=== PATIENT | male | born 1945 | race Hispanic/Latino ===

== ENCOUNTER 2019-08-07 20:19 | Emergency (ER) | payer OTHER, SELFPAY ==
[2019-08-07 20:39] LABS: #Eosinphils 0.1 thou/uL (0.0-0.7); #Lymphocytes 1.1 thou/uL (1.20-3.40); #Monocytes 0.2 thou/uL (0.11-0.59); #Neutrophils 3.7 thou/uL (1.40-6.50); %Basophils 0.8 % (0.0-1.0); %Eosinophils 1.2 % (0.0-10.0); %Lymphocytes 21.7 % (21.0-51.0); %Monocytes 4.2 % (0.0-10.0); %Neutrophils 72.1 % (42.0-75.0); Hemoglobin 14.1 g/dL (14.0-18.0); Mean Corpuscular HGB CONC 34.8 g/dL (32.0-36.0); Mean Corpuscular Volume 89.1 fL (78.0-98.0); Platelet Count 177 thou/uL (130-400); RBC Distribution Width 11.6 % (11.5-14.5); Red Blood Cell (RBC) Count 4.56 mill/uL (4.70-6.10); White Blood Cell (WBC) Count 5.1 thou/uL (4.8-10.8)
--- NOTE | 2019-08-07 20:42 | RAD ---
Exam: Chest one view HISTORY:Chest pain Comparison: 09/06 FINDINGS: Cardiac silhouette: Normal Aorta: Unremarkable Pulmonary vessels: Normal Costophrenic angles: Clear LUNGS: Diminished lung volumes. Linear opacities scattered throughout the lung parenchyma are felt to represent scar and atelectasis. Stable thickening of the minor fissure. Scattered interstitial prominence likely due to diminished lung volumes. Better interrogation of the lung parenchyma with a 2 view chest radiograph (better inspiration). Pneumothorax: None Osseous abnormalities: None IMPRESSION: 1. Diminished lung volumes with accentuation of the interstitium. 2 view chest radiograph with better inspiration is recommended
[2019-08-07 21:00] LABS: ALT (SGPT) 22 U/L (8-55); AST (SGOT) 17 U/L (5-34); Alkaline Phosphatase 134 U/L (40-110); Anion Gap 15 mmol/L (10-20); BUN (Urea Nitrogen) 16 mg/dL (8.4-25.7); Bilirubin, Total 0.5 mg/dL (0.2-1.2); Calc. Creatinine Clearance 0 mL/min (70-130); Calcium 9.2 mg/dL (7.8-10.44); Carbon Dioxide 22 mmol/L (23-31); Chloride 101 mmol/L (98-107); Estimated GFR-MDRD 69; Globulin 3.1 g/dL (2.4-3.5); Glucose 343 mg/dL (83-110); Potassium 4.1 mmol/L (3.5-5.1); Protein, Total 7.1 g/dL (5.8-8.1); Sodium 134 mmol/L (136-145)
[2019-08-07] MEDS ORDERED: Insulin Regular 300 UNITS/3 ML VIAL ONE (21:18)
[2019-08-07] MEDS ORDERED: Nitroglycerin 2% Ointment 1 INCH/1 GM Packet ONE (21:18)
[2019-08-07 22:17] LABS: Base Excess-Venous -2.2 mmol/L (-2.0 to 3.0); Bicarbonate (HCO3v) 21.4 mmol/L (22.0-28.0); CO2 Tension (PvCO2) 32.4 mmHg (40.0-50.0); Calcium, Ionized 1.09 mmol/L (See Comments:); Chloride 101 mmol/L (98-107); Hemoglobin - Calc 12.1 g/dL (14.0-18.0); Potassium 3.7 mmol/L (3.5-5.1); Sodium 136 mmol/L (138-145); T. Carbon Dioxide 22.4 mmol/L (22.0-28.0); vO2 Saturation-calc 94.4 % (60.0-85.0)
[2019-08-08] MEDS ORDERED: Acetaminophen 500 MG TAB ONE (01:19)
== END 2019-08-08 01:34 | disposition short-term general hospital (02) ==
LOC: ERS 20:19
DX: E11.65 Type 2 diabetes mellitus with hyperglycemia (principal); R07.9 Chest pain, unspecified; D64.9 Anemia, unspecified; K21.9 Gastro-esophageal reflux disease without esophagitis; I10 Essential (primary) hypertension; F41.9 Anxiety disorder, unspecified; F43.10 Post-traumatic stress disorder, unspecified; Z79.899 Other long term (current) drug therapy
CPT/HCPCS: 36416; 71045; 80053; 82010; 82330; 82803; 83690; 84484; 85025; 93005; 96360; J1815

== ENCOUNTER 2019-09-17 06:19 | Outpatient (CLI) | payer OTHER ==
[2019-09-17 10:33] LABS: Hemoglobin 13.7 g/dL (14.0-18.0); Mean Corpuscular HGB CONC 32.9 g/dL (32.0-36.0); Mean Corpuscular Hemoglobin 30.3 pg (27.0-31.0); Mean Corpuscular Volume 92.2 fL (78.0-98.0); Mean Platelet Volume 7.3 fL (7.4-10.4); Platelet Count 260 thou/uL (130-400); Red Blood Cell (RBC) Count 4.53 mill/uL (4.70-6.10); White Blood Cell (WBC) Count 6.7 thou/uL (4.8-10.8)
[2019-09-17 11:16] LABS: Anion Gap 13 mmol/L (10-20); BUN (Urea Nitrogen) 15 mg/dL (8.4-25.7); Calc. Creatinine Clearance 0 mL/min (70-130); Carbon Dioxide 21 mmol/L (23-31); Chloride 103 mmol/L (98-107); Estimated GFR-MDRD 83; Glucose 208 mg/dL (83-110); Potassium 4.1 mmol/L (3.5-5.1); Sodium 133 mmol/L (136-145)
[2019-09-17 18:19] LABS: SARS-CoV-2 MS2 Positive; SARS-CoV-2 N Gene Negative; SARS-CoV-2 S Gene Negative; SARS-CoV-2 orf1ab Negative
== END 2019-09-17 06:20 | disposition home or self-care (01) ==
LOC: LABBT 06:19
PROVIDERS: ATTEND Neurological Surgery
DX: Z01.818 Encounter for other preprocedural examination (principal); Z11.59 Encounter for screening for other viral diseases; M48.062 Spinal stenosis, lumbar region with neurogenic claudication
CPT/HCPCS: 80048; 85027; 87635; 93005; 93010; U0003

== ENCOUNTER 2019-09-22 05:45 | Observation (INO) | payer OTHER ==
[2019-09-17 08:27] VITALS: BMI 31.1
[2019-09-22] MEDS ORDERED: Fentanyl 100 MCG/2 ML VIAL ONE ×3 (07:02→09:01)
[2019-09-22] MEDS ORDERED: HYDROmorphone 0.5 MG/0.5 ML SYRINGE ONE ×2 (09:24→09:44)
--- NOTE | 2019-09-22 09:37 | OP ---
DATE OF PROCEDURE: 09/22/2019 [employer]ICE MECHANIC: Iqra Donald PA-C PROCEDURES PERFORMED: L4-L5 laminectomy. DESCRIPTION OF PROCEDURE: The patient was brought to the operating room and intubated. He was rolled in the prone position on gel-filled chest rolls. An incision was made exposing L4-L5 and the level was confirmed by x-ray and removed the residual lamina at L5 and inferior L4, performing complete decompression at L4-L5. The wound was then extensively irrigated and MAC hemostasis was secured. Vancomycin powder was applied and the wound closed in anatomic layers. Job ID: [id number]
[2019-09-22] MEDS ORDERED: Morphine 4 MG/ML VIAL ONE (10:00)
[2019-09-22] MEDS ORDERED: Ondansetron PF 4 MG/2 ML Vial ONE (10:02)
[2019-09-22] MEDS ORDERED: PROPOFOL 200 MG/20 ML VIAL ONE (10:02)
[2019-09-22] MEDS ORDERED: Glycopyrrolate 0.2 MG/ML 5 ML SYRINGE ONE (10:02)
[2019-09-22] MEDS ORDERED: Metoclopramide HCl 10 MG/2 ML VIAL ONE (10:02)
[2019-09-22] MEDS ORDERED: Lidocaine 1% PF 5 ML VIAL ONE (10:02)
[2019-09-22] MEDS ORDERED: Rocuronium Bromide 10 MG/ML (10ML VIAL) ONE (10:02)
[2019-09-22] MEDS ORDERED: Acetaminophen/Codeine 30-300mg Tablet ONE (14:01)
[2019-09-22] MEDS ORDERED: Tamsulosin HCl 0.4 MG CAP ONE (14:04)
[2019-09-22] MEDS ORDERED: diphenhydrAMINE 25 MG CAP ONE (15:51)
[2019-09-22] MEDS ORDERED: Acetaminophen/Codeine 30-300mg Tablet PO PRN (17:53)
[2019-09-22] MEDS ORDERED: traMADol HCl 50 MG TAB PO PRN ×2 (17:53)
[2019-09-22] MEDS ORDERED: Promethazine 25 MG TAB PO PRN (17:53)
[2019-09-22] MEDS ORDERED: Milk Of Magnesia 30 ML UDCUP PO PRN (17:53)
[2019-09-22] MEDS ORDERED: Ondansetron PF 4 MG/2 ML Vial IM PRN (17:53)
[2019-09-22] MEDS ORDERED: Promethazine HCl 12.5 MG SUPP PR PRN (17:53)
[2019-09-22] MEDS ORDERED: tiZANidine HCl 4 MG TAB PO PRN (17:53)
[2019-09-22] MEDS ORDERED: diphenhydrAMINE 50 MG/ML VIAL IVP PRN (17:53)
[2019-09-22] MEDS ORDERED: diphenhydrAMINE 25 MG CAP PO PRN (17:53)
[2019-09-22] MEDS ORDERED: Morphine 4 MG/ML VIAL SLOW IVP PRN (17:53)
[2019-09-22] MEDS ORDERED: Mag-Al 1200 mg/1200 mg/30 ML UDCUP PO PRN (17:53)
[2019-09-22] MEDS ORDERED: Morphine 2 MG/ML SYRINGE SLOW IVP PRN (17:53)
[2019-09-22] MEDS ORDERED: Promethazine HCl 25 MG/ML VIAL IM PRN (17:53)
[2019-09-22] MEDS: Sodium Chloride 0.9% 1,000 ML IV SCH (18:16)
[2019-09-22] MEDS ORDERED: HumaLOG 300 UNITS/3 ML VIAL SC PRN ×2 (19:12)
[2019-09-22] MEDS ORDERED: Dextrose 5% in Water 1,000 ML IV PRN (19:12)
[2019-09-22] MEDS ORDERED: Dextrose 50% Abboject 50 ML SYRINGE SLOW IVP PRN (19:12)
[2019-09-22 20:09] LABS: #Basophils 0.1 thou/uL (0.0-0.2); #Eosinphils 0.1 thou/uL (0.0-0.7); #Lymphocytes 2.3 thou/uL (1.20-3.40); #Monocytes 0.5 thou/uL (0.11-0.59); #Neutrophils 5.3 thou/uL (1.40-6.50); %Basophils 0.9 % (0.0-1.0); %Eosinophils 1.5 % (0.0-10.0); %Lymphocytes 27.8 % (21.0-51.0); %Monocytes 6.2 % (0.0-10.0); %Neutrophils 63.6 % (42.0-75.0); Hemoglobin 13.6 g/dL (14.0-18.0); Mean Corpuscular HGB CONC 34.5 g/dL (32.0-36.0); Mean Corpuscular Volume 89.8 fL (78.0-98.0); Mean Platelet Volume 6.9 fL (7.4-10.4); Platelet Count 259 thou/uL (130-400); RBC Distribution Width 12.8 % (11.5-14.5); Red Blood Cell (RBC) Count 4.37 mill/uL (4.70-6.10); White Blood Cell (WBC) Count 8.3 thou/uL (4.8-10.8)
[2019-09-22] MEDS: Insulin Glargine 30 UNITS in Pre-Filled Syringe 1 EACH SC SCH ×2 (20:29→21:58)
[2019-09-22] MEDS: HumaLOG 300 UNITS/3 ML VIAL SC SCH ×2 (20:29→21:58)
[2019-09-22 20:32] LABS: ALT (SGPT) 21 U/L (8-55); AST (SGOT) 19 U/L (5-34); Alkaline Phosphatase 121 U/L (40-110); Anion Gap 12 mmol/L (10-20); BUN (Urea Nitrogen) 12 mg/dL (8.4-25.7); Bilirubin, Total 0.6 mg/dL (0.2-1.2); Calc. Creatinine Clearance 83 mL/min (70-130); Calcium 8.8 mg/dL (7.8-10.44); Carbon Dioxide 24 mmol/L (23-31); Chloride 99 mmol/L (98-107); Estimated GFR-MDRD 71; Globulin 2.9 g/dL (2.4-3.5); Glucose 351 mg/dL (83-110); Potassium 4.2 mmol/L (3.5-5.1); Protein, Total 6.9 g/dL (5.8-8.1); Sodium 131 mmol/L (136-145)
[2019-09-22] MEDS: Gabapentin 300 MG CAP PO SCH (20:33)
[2019-09-22] MEDS: Acetaminophen/Codeine 30-300mg Tablet PO PRN (20:35)
[2019-09-22] MEDS ORDERED: Non-Formulary Item 1 EACH (Insulin Detemir [Levemir] 30 UNIT) SQ SCH (21:00)
[2019-09-22] MEDS ORDERED: Prazosin HCl 1 MG CAP PO SCH (21:00)
[2019-09-22] MEDS ORDERED: CLOBETASOL PROPIONATE 0.05% TOP SCH (21:00)
[2019-09-22] MEDS ORDERED: Doxepin HCl 10 MG CAP PO SCH (21:00)
--- NOTE | 2019-09-22 21:41 | CON ---
DATE OF CONSULTATION: 09/22/2019 TIME OF ASSESSMENT: 1700 hours. REASON FOR CONSULTATION: Medical management. CHIEF COMPLAINT: None. HISTORY OF PRESENT ILLNESS: Mr. France is a 74-year-old gentleman, who is status post a lumbar laminectomy of L4-L5 done earlier today by Dr. Dai, who has been referred for medical management. He has a history of diabetes mellitus, hypertension, and hyperlipidemia. The patient states he just finished eating dinner and tolerated it well without any nausea or vomiting. Denies having any abdominal pain. He states his pain following the surgery is under good control. Denies having any chest pain or palpitations at this present time. No headaches or dizziness. He is sitting comfortably in bed, watching TV. The patient reported having issues with intermittent chest pain few days ago, which has been recurring issue in the past. He did seek medical attention at the [facility] and reports being told that it was musculoskeletal pain. He has not had a stress test or echocardiogram according to the patient. He is pain free at this present time. PAST MEDICAL HISTORY: 1. Diabetes mellitus. 2. Hypertension. 3. Hyperlipidemia. 4. Lumbar stenosis. 5. Depression. 6. PTSD. 7. Exposure to Agent [place]. PAST SURGICAL HISTORY: Laminectomy of L4-L5 done earlier today. SOCIAL HISTORY: The patient is retired. Reports having issues with posttraumatic stress disorder, which causes him difficulty going to his doctor appointments due to being placed in a room and waiting a long time to see the physician. He is claustrophobic due to being a prisoner of war during his time in [place]. The patient lives with his and reports having good support at home. He denies any tobacco use, alcohol consumption, or illicit drug use. FAMILY HISTORY: Noncontributory. ALLERGIES: NO KNOWN DRUG ALLERGIES. CURRENT MEDICATIONS: 1. Tylenol with codeine. 2. Celexa. 3. Metformin. 4. Naproxen. 5. Clobetasol propionate lotion. 6. Sinequan. 7. Gabapentin. 8. NovoLog 15 units subcu b.i.d. 9. Levemir 30 units subcutaneous b.i.d. 10. Prazosin. 11. Seroquel. PHYSICAL EXAMINATION: GENERAL: The patient appears well developed, well nourished, is in no acute distress. VITAL SIGNS: Temperature 97.7, pulse 71, respirations 18, O2 saturation 97% on room air, and blood pressure 165/77. HEENT: Normocephalic and atraumatic. Pupils are equal, round, and reactive to light. Sclerae icterus. Oropharynx is clear. NECK: Supple. LUNGS: Clear to auscultation without any wheezes, rales, or rhonchi. CARDIAC: Regular rate and rhythm. ABDOMEN: Soft, obese, nontender, and nondistended. Normoactive bowel sounds present. No guarding or rigidity. No renal angle tenderness. EXTREMITIES: No lower leg swelling or edema. He does have altered sensation, which is long standing due to diabetic neuropathy. The patient states it is unchanged from baseline. Power 5/5 in all limbs. SKIN: Warm and dry. LABORATORY DATA: Preoperative labs done on 09/17/2019 showed white count 6.7, hemoglobin 13.2, hematocrit 41.7, and platelets 260. Sodium 133, potassium 4.1, BUN 15, creatinine 0.90, GFR 83, glucose 208, and calcium 9. COVID testing negative. DIAGNOSTIC DATA: Preoperative EKG showed normal sinus rhythm with a heart rate of 77. No ST changes or T-wave abnormalities. IMPRESSION AND PLAN: Mr. France is a very pleasant 74-year-old gentleman, who is status post L4-L5 laminectomy done earlier today by Dr. Dai, who has been referred for medical management. We will continue to manage the followin. Hypertension. Home medications reconciled. Monitor blood pressure. 2. Diabetes mellitus. Monitor glucose. Insulin sliding scale initiated and home medications reconciled. 3. Hyperlipidemia. Home medications reconciled. 4. Diabetic neuropathy. We will reconcile gabapentin. 5. Benign prostatic hyperplasia. The patient was on prazosin, which we will resume. 6. Deep venous thrombosis prophylaxis. Mechanical sequential compression devices ordered. 7. Gastrointestinal prophylaxis with famotidine. 8. Code status, full. Surrogate decision maker is his , Nasra France. Thank you for this consultation. We will continue to follow this patient with you. Job ID: [id number]
[2019-09-22] MEDS: Famotidine 20 MG TAB PO SCH ×2 (21:49→21:57)
[2019-09-23] MEDS: Acetaminophen/Codeine 30-300mg Tablet PO PRN ×2 (01:21→05:24)
[2019-09-23 03:43] VITALS: TEMP 97.7
[2019-09-23] MEDS ORDERED: Tamsulosin HCl 0.4 MG CAP PO SCH (06:00)
[2019-09-23 06:12] LABS: #Basophils 0.1 thou/uL (0.0-0.2); #Eosinphils 0.1 thou/uL (0.0-0.7); #Lymphocytes 2.1 thou/uL (1.20-3.40); #Monocytes 0.5 thou/uL (0.11-0.59); #Neutrophils 4.3 thou/uL (1.40-6.50); %Basophils 0.9 % (0.0-1.0); %Eosinophils 1.3 % (0.0-10.0); %Lymphocytes 30.1 % (21.0-51.0); %Monocytes 7.2 % (0.0-10.0); %Neutrophils 60.4 % (42.0-75.0); Hemoglobin 11.7 g/dL (14.0-18.0); Mean Corpuscular HGB CONC 33.9 g/dL (32.0-36.0); Mean Corpuscular Hemoglobin 30.6 pg (27.0-31.0); Mean Corpuscular Volume 90.2 fL (78.0-98.0); Mean Platelet Volume 7.1 fL (7.4-10.4); Platelet Count 229 thou/uL (130-400); RBC Distribution Width 12.7 % (11.5-14.5); Red Blood Cell (RBC) Count 3.82 mill/uL (4.70-6.10); White Blood Cell (WBC) Count 7.1 thou/uL (4.8-10.8)
[2019-09-23 06:36] LABS: Anion Gap 12 mmol/L (10-20); BUN (Urea Nitrogen) 12 mg/dL (8.4-25.7); Calc. Creatinine Clearance 99 mL/min (70-130); Calcium 8.3 mg/dL (7.8-10.44); Carbon Dioxide 25 mmol/L (23-31); Chloride 100 mmol/L (98-107); Estimated GFR-MDRD 87; Glucose 236 mg/dL (83-110); Sodium 133 mmol/L (136-145)
[2019-09-23 07:29] VITALS: BP 125/67
[2019-09-23] MEDS: Sodium Chloride 0.9% 1,000 ML IV SCH (08:05)
[2019-09-23] MEDS: HumaLOG 300 UNITS/3 ML VIAL SC SCH (08:11)
[2019-09-23] MEDS: Gabapentin 300 MG CAP PO SCH (08:11)
[2019-09-23] MEDS: Famotidine 20 MG TAB PO SCH (08:11)
[2019-09-23] MEDS ORDERED: Insulin Glargine 30 UNITS in Pre-Filled Syringe 1 EACH SC SCH (09:00)
--- NOTE | 2019-09-23 09:45 | DIS ---
DATE OF ADMISSION: 09/22/2019 DATE OF DISCHARGE: 09/23/2019 The patient is a 74-year-old male, recently evaluated in our office for progressive back and claudicatory leg pain. He was found to have significant stenosis at L4-L5 and underwent L4-L5 laminectomy on 09/22/2019. Following the surgery, his pain was well controlled with p.o. medication, he was tolerating a regular diet, but he did develop some urinary retention. This required I and O cath x1. He was admitted for observation and this improved significantly over the first night. On exam on postoperative day #1, the patient was awake, alert, in no acute distress. He had free active range of motion of all extremities. No focal motor weakness. No incisional issues. He had ambulated short distances in his room and in the rush with his cane. We will plan to dismiss to home. I have discussed home care and precautions. We will follow up with the patient in 2 weeks. He was provided with Tylenol No. 3 and Zanaflex prescriptions. [facility] Willy checked prior to discharge. Job ID: [id number]
== END 2019-09-23 09:25 | disposition home or self-care (01) ==
LOC: SDC 05:45 → SURG A 17:44
PROVIDERS: ADMIT Neurological Surgery; ATTEND Neurological Surgery
PROC: 01NB0ZZ Release Lumbar Nerve, Open Approach (ICD-10-PCS; principal; 2019-09-22)
DX: M48.062 Spinal stenosis, lumbar region with neurogenic claudication (principal); R33.9 Retention of urine, unspecified; I10 Essential (primary) hypertension; E11.40 Type 2 diabetes mellitus with diabetic neuropathy, unspecified; E78.5 Hyperlipidemia, unspecified; N40.0 Benign prostatic hyperplasia without lower urinary tract symptoms; F32.9 Major depressive disorder, single episode, unspecified; F43.10 Post-traumatic stress disorder, unspecified; Z77.098 Contact with and (suspected) exposure to other hazardous, chiefly nonmedicinal, chemicals; Z79.1 Long term (current) use of non-steroidal anti-inflammatories (NSAID); Z79.4 Long term (current) use of insulin; Z79.899 Other long term (current) drug therapy
CPT/HCPCS: 36415; 36416; 76000; 80048; 80053; 83880; 85025; G0378; J0690; J1170; J1815; J2001; J2270; J2405; J2704; J2765; J3010; J3370; Q0163

== ENCOUNTER 2020-03-07 08:54 | Outpatient (CLI) | payer OTHER ==
--- NOTE | 2020-03-07 10:33 | RAD ---
LUMBAR SPINE 4 VIEWS: Date: 03/07/2020 INDICATION: Lumbar stenosis with claudication. FINDINGS: In the AP view, there is a slight scoliotic curvature to the left. Moderate degenerative changes are noted. Disc space narrowing and spurring is seen. Facet hypertrophy is noted. Slight posterolisthesis noted at L2-3 and at L3-4 with posterior osteophytes seen along the posterior disc margin at both these levels encroaching into the spinal canal and probably contributing to cent ral canal stenosis at these levels. IMPRESSION: Degenerative changes as described with mild posterolisthesis at L2-3 and L3-4 as noted. POS: ANTWAN
--- NOTE | 2020-03-07 11:18 | MRI ---
MRI LUMBAR SPINE WITH AND WITHOUT CONTRAST: DATE: 03/07/2020 HISTORY: 74-year-old male with lumbar spinal stenosis with claudication. M 48.062 COMPARISON: None TECHNIQUE: Multiple sequences obtained in axial and sagittal planes, pre and post IV injection of gadolinium-bas ed contrast agent. FINDINGS: There are 5 lumbar-type vertebrae. Vertebral body heights are maintained. Conus medullaris terminates at lower L2 level. T12-L1:Minimal broad-based disc protrusion. Otherwise normal. L1-2:Essentially normal. L2-3:No high-grade disc space narrowing. Disc desiccation. Slight retrolisthesis of L2 on L3. Mild di sc bulge. No neural foraminal stenosis. Mild central spinal canal stenosis. L3-4:Mild to moderate disc space narrowing. Slight retrolisthesis of L3 on L4. Prominent diffuse disc bulge. No significant right neural foraminal stenosis. Mild left neural foraminal stenosis. Mild bilateral facet DJD. Mild central spinal canal stenosis. Posterior epidural fat pad. Moderate thecal sac stenosis. L4-5:No high-grade disc space narrowing. Vacuum disc phenomenon. Prominent diffuse disc bulge. Mild r ight and moderate left neural foraminal stenosis. Mild to moderate right and moderate left facet DJD. Thin layer broad-based of enhancing postsurgical tissue along the posterior margin of the disc b ulge at the anterior epidural space, broadly indents the ventral aspect of thecal sac. This is contiguous with bilateral lateral and posterior enhancing postsurgical extradural tissues. These resu lt in mild to moderate degree of thecal sac stenosis. Left lateral recess stenosis. Midline laminectomy defect. L5-S1:No high-grade disc space narrowing. Retrolisthesis of L5 on S1. Central and bilateral paracentr al disc herniation protrudes into the anterior epidural fat, but does not significantly decreased the caliber of the thecal sac. Midline laminectomy defect. Enhancing postsurgical tissue surrounds th e bilateral S1 nerve roots at the lateral recesses. No high-grade central spinal canal stenosis or high-grade thecal sac stenosis. Mild right and moderate to severe left facet DJD. Mild right and mode rate left neural foraminal stenosis. IMPRESSION: 1) status post midline laminectomies at L4-5 and L5-S1. 2) enhancing postsurgical tissue (either scar tissue or granulation tissue, depending on when the heather janey occurred) surrounding the bilateral S1 nerve roots at the lateral recesses of L5-S1 level, and surrounding the bilateral L5 nerve roots at the lateral recesses of L4-5 level. 3) lumbar spondylosis with moderate degenerative disc disease and facet osteoarthrosis. 4) mild and moderate degrees of central spinal canal stenosis and neural foraminal stenosis at differ ent levels.
== END 2020-03-07 08:55 | disposition home or self-care (01) ==
LOC: TBSIIMAG 08:54
PROVIDERS: ATTEND Neurological Surgery
DX: M48.062 Spinal stenosis, lumbar region with neurogenic claudication (principal); M47.816 Spondylosis without myelopathy or radiculopathy, lumbar region; M43.16 Spondylolisthesis, lumbar region; M51.16 Intervertebral disc disorders with radiculopathy, lumbar region
CPT/HCPCS: 72120; 72158

== ENCOUNTER 2020-06-12 14:21 | Emergency (ER) | payer OTHER ==
[2020-06-12] MEDS ORDERED: Dexamethasone 4 MG TAB ONE (14:53)
[2020-06-12] MEDS ORDERED: Morphine 4 MG/ML VIAL ONE (14:53)
[2020-06-12] MEDS ORDERED: Dexamethasone 4 mg/ml Vial ONE (14:53)
[2020-06-12] MEDS ORDERED: Ondansetron ODT 4 MG TAB ONE (14:53)
== END 2020-06-12 15:56 | disposition home or self-care (01) ==
LOC: ERS 14:21
DX: M54.12 Radiculopathy, cervical region (principal); D64.9 Anemia, unspecified; E11.9 Type 2 diabetes mellitus without complications; I10 Essential (primary) hypertension; Z79.4 Long term (current) use of insulin; Z87.19 Personal history of other diseases of the digestive system
CPT/HCPCS: J1100; J2270; J8540; Q0162

== ENCOUNTER 2020-06-13 17:42 | Inpatient (IN) | payer OTHER ==
[2020-06-13] MEDS ORDERED: Morphine 4 MG/ML VIAL ONE ×2 (21:05→21:19)
[2020-06-13] MEDS ORDERED: Ondansetron PF 4 MG/2 ML Vial ONE (21:05)
[2020-06-13 21:12] LABS: Hemoglobin 14.5 g/dL (14.0-18.0); Mean Corpuscular HGB CONC 33.1 g/dL (32.0-36.0); Mean Corpuscular Hemoglobin 29.7 pg (27.0-31.0); Mean Corpuscular Volume 89.7 fL (78.0-98.0); Mean Platelet Volume 6.5 fL (7.4-10.4); Platelet Count 313 thou/uL (130-400); RBC Distribution Width 12.3 % (11.5-14.5); Red Blood Cell (RBC) Count 4.89 mill/uL (4.70-6.10); White Blood Cell (WBC) Count 20.5 thou/uL (4.8-10.8)
[2020-06-13 21:29] LABS: ALT (SGPT) 22 U/L (8-55); AST (SGOT) 8 U/L (5-34); Albumin 3.9 g/dL (3.4-4.8); Alkaline Phosphatase 138 U/L (40-110); Anion Gap 17 mmol/L (10-20); BUN (Urea Nitrogen) 23 mg/dL (8.4-25.7); Bilirubin, Total 0.4 mg/dL (0.2-1.2); Calc. Creatinine Clearance 0 mL/min (70-130); Calcium 9.5 mg/dL (7.8-10.44); Carbon Dioxide 22 mmol/L (23-31); Chloride 98 mmol/L (98-107); Globulin 3.6 g/dL (2.4-3.5); Glucose 424 mg/dL (83-110); Potassium 4.7 mmol/L (3.5-5.1); Protein, Total 7.5 g/dL (5.8-8.1); Sodium 132 mmol/L (136-145)
[2020-06-13 21:48] LABS: Band 10 % (5-11); Lymphocytes 4 % (21-51); MDiff Complete? YES; Monocytes 6 % (0-10); Neutrophil 80 % (42-75)
[2020-06-13] MEDS ORDERED: Cefepime 2 GM VIAL ONE (22:38)
[2020-06-14] MEDS ORDERED: Morphine 4 MG/ML VIAL ONE (00:03)
[2020-06-14 01:45] VITALS: BMI 31.3
[2020-06-14] MEDS ORDERED: Dextrose 50% Abboject 50 ML SYRINGE SLOW IVP PRN (03:06)
[2020-06-14] MEDS ORDERED: Ondansetron ODT 4 MG TAB PO PRN (03:06)
[2020-06-14] MEDS ORDERED: Dextrose 5% in Water 1,000 ML IV PRN (03:06)
[2020-06-14] MEDS ORDERED: Ondansetron PF 4 MG/2 ML Vial IVP PRN (03:06)
[2020-06-14] MEDS: Lactated Ringer's 1,000 ML IV SCH ×2 (03:19→11:46)
[2020-06-14] MEDS: Morphine 2 MG/ML VIAL SLOW IVP PRN ×5 (03:20→20:50)
[2020-06-14 04:39] LABS: SARS-CoV-2 PCR by NAA Not Detected (NotDetected)
[2020-06-14] MEDS: Piperacillin/Tazobactam 4.5 GM in Sodium Chloride 0.9% 100 ML IVPB SCH ×3 (05:30→15:22)
[2020-06-14] MEDS: HumaLOG 300 UNITS/3 ML VIAL SC PRN ×3 (05:34→20:52)
[2020-06-14 06:51] LABS: #Lymphocytes 1.3 thou/uL (1.20-3.40); #Monocytes 1.2 thou/uL (0.11-0.59); #Neutrophils 14.5 thou/uL (1.40-6.50); %Eosinophils 0.1 % (0.0-10.0); %Lymphocytes 7.6 % (21.0-51.0); %Monocytes 6.9 % (0.0-10.0); %Neutrophils 85.4 % (42.0-75.0); Hemoglobin 13.6 g/dL (14.0-18.0); Mean Corpuscular HGB CONC 32.6 g/dL (32.0-36.0); Mean Corpuscular Hemoglobin 29.7 pg (27.0-31.0); Mean Platelet Volume 6.6 fL (7.4-10.4); Platelet Count 278 thou/uL (130-400); RBC Distribution Width 12.3 % (11.5-14.5); Red Blood Cell (RBC) Count 4.59 mill/uL (4.70-6.10); White Blood Cell (WBC) Count 16.9 thou/uL (4.8-10.8)
[2020-06-14 07:11] LABS: Anion Gap 14 mmol/L (10-20); BUN (Urea Nitrogen) 18 mg/dL (8.4-25.7); Calc. Creatinine Clearance 108 mL/min (70-130); Calcium 8.8 mg/dL (7.8-10.44); Carbon Dioxide 22 mmol/L (23-31); Chloride 100 mmol/L (98-107); Glucose 290 mg/dL (83-110); Potassium 3.9 mmol/L (3.5-5.1); Sodium 132 mmol/L (136-145)
[2020-06-14] MEDS ORDERED: Vancomycin 1 GM in Premix Bag 1 BAG IVPB SCH ×2 (09:00→21:05)
[2020-06-14] MEDS ORDERED: Cefepime 2 GM in Sodium Chloride 0.9% 100 ML IVPB SCH (10:00)
[2020-06-14] MEDS: Enoxaparin Sodium 40 MG/0.4 ML SYRINGE SC SCH (10:49)
[2020-06-14] MEDS: Ketorolac Tromethamine 30 MG/ML VIAL IVP PRN (11:04)
[2020-06-14] MEDS ORDERED: Iopamidol-370 76% 500 ML 1 ML ONE (11:09)
[2020-06-14] MEDS ORDERED: VANCOMYCIN 1.25 GM/250 ML BAG 1.25 GM in Premix Bag 1 BAG IVPB SCH ×2 (12:00→23:59)
[2020-06-14] MEDS: Methocarbamol 500 MG TAB PO PRN (12:54)
[2020-06-14] MEDS: hydrALAZINE 20 MG/ML VIAL SLOW IVP PRN (15:20)
[2020-06-14] MEDS ORDERED: Magnevist 469MG/ML 20 ML VIAL ONE ×2 (15:22)
[2020-06-14] MEDS ORDERED: Promethazine HCl 25 MG in Sodium Chloride 0.9% 50 ML IVPB ONE (16:56)
[2020-06-14] MEDS ORDERED: Fentanyl 100 MCG/2 ML VIAL SLOW IVP SCH ×2 (17:04→22:45)
[2020-06-14] MEDS: Insulin Glargine 15 UNITS in Pre-Filled Syringe 1 EACH SC SCH (20:53)
[2020-06-14 23:08] LABS: Lactic Acid 1.4 mmol/L (0.5-2.2)
[2020-06-14 23:11] LABS: ALT (SGPT) 25 U/L (8-55); AST (SGOT) 12 U/L (5-34); Albumin 3.6 g/dL (3.4-4.8); Alkaline Phosphatase 123 U/L (40-110); Anion Gap 16 mmol/L (10-20); BUN (Urea Nitrogen) 16 mg/dL (8.4-25.7); Bilirubin, Total 0.9 mg/dL (0.2-1.2); Calc. Creatinine Clearance 104 mL/min (70-130); Calcium 8.8 mg/dL (7.8-10.44); Carbon Dioxide 20 mmol/L (23-31); Chloride 99 mmol/L (98-107); Globulin 3.3 g/dL (2.4-3.5); Glucose 332 mg/dL (83-110); Magnesium 1.8 mg/dL (1.6-2.6); Potassium 3.9 mmol/L (3.5-5.1); Protein, Total 6.9 g/dL (5.8-8.1); Sodium 131 mmol/L (136-145)
[2020-06-14 23:31] LABS: Free T4 (Free Thyroxine) 1.11 ng/dL (0.70-1.48); Thyroid Stimulating Hormone 0.8286 uIU/mL (0.35-4.94)
[2020-06-14] MEDS ORDERED: methylPREDNISolone Sod Succ/PF 125 MG/2 ML VIAL IVP SCH (23:45)
[2020-06-15] MEDS: Morphine 2 MG/ML VIAL SLOW IVP PRN ×3 (04:32→21:29)
[2020-06-15] MEDS: Ketorolac Tromethamine 30 MG/ML VIAL IVP PRN ×4 (04:33→23:14)
[2020-06-15] MEDS: HumaLOG 300 UNITS/3 ML VIAL SC PRN ×2 (04:39→11:34)
[2020-06-15 06:57] LABS: Hemoglobin 14.6 g/dL (14.0-18.0); Mean Corpuscular HGB CONC 32.3 g/dL (32.0-36.0); Mean Corpuscular Hemoglobin 29.3 pg (27.0-31.0); Mean Corpuscular Volume 90.9 fL (78.0-98.0); Mean Platelet Volume 6.3 fL (7.4-10.4); Platelet Count 296 thou/uL (130-400); RBC Distribution Width 12.2 % (11.5-14.5); Red Blood Cell (RBC) Count 4.98 mill/uL (4.70-6.10); White Blood Cell (WBC) Count 16.4 thou/uL (4.8-10.8)
[2020-06-15 07:13] LABS: Anion Gap 18 mmol/L (10-20); BUN (Urea Nitrogen) 20 mg/dL (8.4-25.7); Calc. Creatinine Clearance 101 mL/min (70-130); Calcium 9.1 mg/dL (7.8-10.44); Carbon Dioxide 19 mmol/L (23-31); Chloride 98 mmol/L (98-107); Glucose 406 mg/dL (83-110); Potassium 4.2 mmol/L (3.5-5.1); Sodium 131 mmol/L (136-145)
[2020-06-15] MEDS: Enoxaparin Sodium 40 MG/0.4 ML SYRINGE SC SCH (08:23)
[2020-06-15 09:33] LABS: Band 16 % (5-11); Lymphocytes 5 % (21-51); MDiff Complete? YES; Monocytes 3 % (0-10); Neutrophil 75 % (42-75); Platelet Morphology Comment Appears Adequate; Polychromasia SLIGHT = 2-3 cells (100X) (0-2/hpf); Reactive Lymphocytes 1 % (0-10)
[2020-06-15 11:29] LABS: Vancomycin, Trough 11.3 ug/mL
[2020-06-15] MEDS ORDERED: Vancomycin 1.5 GRAM/300 ML BAG 1.5 GM in Premix Bag 1 BAG IVPB SCH (12:00)
[2020-06-15] MEDS: Sodium Chloride 0.9% 1,000 ML IV SCH (13:37)
[2020-06-15] MEDS ORDERED: ceFAZolin 1 GM/D5W 1 GM in Premix Bag 1 BAG IVPB SCH (14:00)
[2020-06-15] MEDS: Insulin Regular 300 UNITS/3 ML VIAL SC PRN ×2 (16:33→21:24)
[2020-06-15] MEDS: Insulin Glargine 15 UNITS in Pre-Filled Syringe 1 EACH SC SCH (21:22)
[2020-06-15] MEDS ORDERED: CEFAZOLIN IVPB SCH (23:59)
[2020-06-15] MEDS ORDERED: D5W 2 GM IVPB SCH (23:59)
[2020-06-16] MEDS: CEFAZOLIN 2 GM in Premix Bag 1 BAG IVPB SCH ×3 (00:13→17:05)
[2020-06-16] MEDS: Morphine 2 MG/ML VIAL SLOW IVP PRN ×2 (03:22→08:13)
[2020-06-16] MEDS: Ketorolac Tromethamine 30 MG/ML VIAL IVP PRN ×3 (05:08→18:30)
[2020-06-16] MEDS: Insulin Regular 300 UNITS/3 ML VIAL SC PRN ×4 (06:12→21:04)
[2020-06-16] MEDS: Enoxaparin Sodium 40 MG/0.4 ML SYRINGE SC SCH (08:13)
[2020-06-16] MEDS: Sodium Chloride 0.9% 1,000 ML IV SCH (08:15)
[2020-06-16] MEDS ORDERED: methylPREDNISolone Sod Succ/PF 125 MG/2 ML VIAL IVP SCH (12:00)
[2020-06-16] MEDS ORDERED: methylPREDNISolone Sod Succ 40 MG VIAL IVP SCH (12:15)
[2020-06-16] MEDS ORDERED: Bacteriostatic Water 30 ML VIAL FS PRN (12:15)
[2020-06-16 12:17] LABS: Hemoglobin 14.1 g/dL (14.0-18.0); Mean Corpuscular HGB CONC 33.5 g/dL (32.0-36.0); Mean Corpuscular Hemoglobin 30.4 pg (27.0-31.0); Mean Corpuscular Volume 90.7 fL (78.0-98.0); Mean Platelet Volume 6.2 fL (7.4-10.4); Platelet Count 324 thou/uL (130-400); RBC Distribution Width 12.3 % (11.5-14.5); Red Blood Cell (RBC) Count 4.64 mill/uL (4.70-6.10); White Blood Cell (WBC) Count 16.9 thou/uL (4.8-10.8)
[2020-06-16 12:39] LABS: Anion Gap 14 mmol/L (10-20); BUN (Urea Nitrogen) 24 mg/dL (8.4-25.7); Calc. Creatinine Clearance 96 mL/min (70-130); Calcium 8.9 mg/dL (7.8-10.44); Carbon Dioxide 23 mmol/L (23-31); Chloride 99 mmol/L (98-107); Glucose 384 mg/dL (83-110); Potassium 3.7 mmol/L (3.5-5.1); Sodium 132 mmol/L (136-145)
[2020-06-16] MEDS ORDERED: Iopamidol-370 76% 500 ML 1 ML ONE (13:19)
[2020-06-16] MEDS: Morphine 4 MG/ML VIAL SLOW IVP PRN ×2 (14:21→21:03)
[2020-06-16] MEDS: HumaLOG 300 UNITS/3 ML VIAL SC SCH (17:07)
[2020-06-16] MEDS: Insulin Glargine 18 UNITS in Pre-Filled Syringe SC SCH (21:02)
[2020-06-17] MEDS: Ketorolac Tromethamine 30 MG/ML VIAL IVP PRN ×3 (00:10→22:56)
[2020-06-17] MEDS: CEFAZOLIN 2 GM in Premix Bag 1 BAG IVPB SCH ×4 (00:11→23:00)
[2020-06-17] MEDS: Morphine 4 MG/ML VIAL SLOW IVP PRN ×4 (02:01→20:57)
[2020-06-17] MEDS: Sodium Chloride 0.9% 1,000 ML IV SCH (05:37)
[2020-06-17 06:13] LABS: Hemoglobin 12.9 g/dL (14.0-18.0); Mean Corpuscular HGB CONC 32.3 g/dL (32.0-36.0); Mean Corpuscular Hemoglobin 29.4 pg (27.0-31.0); Mean Platelet Volume 6.2 fL (7.4-10.4); Platelet Count 311 thou/uL (130-400); RBC Distribution Width 12.1 % (11.5-14.5); Red Blood Cell (RBC) Count 4.41 mill/uL (4.70-6.10); White Blood Cell (WBC) Count 14.8 thou/uL (4.8-10.8)
[2020-06-17 06:42] LABS: Anion Gap 15 mmol/L (10-20); BUN (Urea Nitrogen) 22 mg/dL (8.4-25.7); Calc. Creatinine Clearance 104 mL/min (70-130); Calcium 8.4 mg/dL (7.8-10.44); Carbon Dioxide 21 mmol/L (23-31); Chloride 100 mmol/L (98-107); Glucose 316 mg/dL (83-110); Potassium 4.1 mmol/L (3.5-5.1); Sodium 132 mmol/L (136-145)
[2020-06-17] MEDS ORDERED: Metoclopramide HCl 10 MG/2 ML VIAL ONE (09:39)
[2020-06-17] MEDS ORDERED: Lidocaine 1% PF 5 ML VIAL ONE (09:39)
[2020-06-17] MEDS ORDERED: Ondansetron PF 4 MG/2 ML Vial ONE (09:39)
[2020-06-17] MEDS ORDERED: Succinylcholine 200 MG/10 ml SYRINGE FS ONE (09:39)
[2020-06-17] MEDS ORDERED: PROPOFOL 200 MG/20 ML VIAL ONE (09:39)
[2020-06-17] MEDS: HumaLOG 300 UNITS/3 ML VIAL SC SCH ×3 (09:43→17:44)
[2020-06-17] MEDS: Enoxaparin Sodium 40 MG/0.4 ML SYRINGE SC SCH (09:44)
[2020-06-17] MEDS ORDERED: Insulin Glargine 9 UNITS in Pre-Filled Syringe 1 EACH SC SCH (09:45)
[2020-06-17] MEDS: methylPREDNISolone Sod Succ/PF 125 MG/2 ML VIAL IVP SCH ×3 (12:10→23:00)
[2020-06-17] MEDS ORDERED: Fentanyl 100 MCG/2 ML VIAL ONE ×3 (14:06→15:32)
[2020-06-17] MEDS ORDERED: Famotidine/PF 20 mg/2ml Vial ONE (14:06)
[2020-06-17] MEDS ORDERED: Lidocaine 1% (PF) 30 ML VIAL ONE (14:24)
[2020-06-17] MEDS ORDERED: Bacitracin Zinc Ointment 30 gm TUBE ONE (14:44)
[2020-06-17] MEDS: Insulin Regular 300 UNITS/3 ML VIAL SC PRN ×2 (17:45→20:58)
[2020-06-17] MEDS: Bacitracin 1 PK TOP SCH (20:56)
[2020-06-17] MEDS: Insulin Glargine 18 UNITS in Pre-Filled Syringe SC SCH (20:57)
[2020-06-18] MEDS: Sodium Chloride 0.9% 1,000 ML IV SCH ×2 (02:54→20:20)
[2020-06-18] MEDS: methylPREDNISolone Sod Succ/PF 125 MG/2 ML VIAL IVP SCH (05:11)
[2020-06-18] MEDS: hydrALAZINE 20 MG/ML VIAL SLOW IVP PRN (05:12)
[2020-06-18] MEDS: Insulin Regular 300 UNITS/3 ML VIAL SC PRN ×3 (05:12→16:31)
[2020-06-18 06:12] LABS: Hemoglobin 12.9 g/dL (14.0-18.0); Mean Corpuscular HGB CONC 32.9 g/dL (32.0-36.0); Mean Corpuscular Hemoglobin 29.8 pg (27.0-31.0); Mean Corpuscular Volume 90.4 fL (78.0-98.0); Mean Platelet Volume 6.2 fL (7.4-10.4); Platelet Count 332 thou/uL (130-400); RBC Distribution Width 12.1 % (11.5-14.5); Red Blood Cell (RBC) Count 4.33 mill/uL (4.70-6.10); White Blood Cell (WBC) Count 12.9 thou/uL (4.8-10.8)
[2020-06-18 06:37] LABS: Anion Gap 14 mmol/L (10-20); BUN (Urea Nitrogen) 18 mg/dL (8.4-25.7); Calc. Creatinine Clearance 113 mL/min (70-130); Calcium 8.7 mg/dL (7.8-10.44); Carbon Dioxide 22 mmol/L (23-31); Chloride 100 mmol/L (98-107); Glucose 408 mg/dL (83-110); Potassium 4.4 mmol/L (3.5-5.1); Sodium 132 mmol/L (136-145)
[2020-06-18] MEDS: CEFAZOLIN 2 GM in Premix Bag 1 BAG IVPB SCH ×3 (07:52→23:23)
[2020-06-18] MEDS: HumaLOG 300 UNITS/3 ML VIAL SC SCH ×3 (07:57→17:30)
[2020-06-18] MEDS: Enoxaparin Sodium 40 MG/0.4 ML SYRINGE SC SCH (08:02)
[2020-06-18] MEDS: Acetaminophen 325 MG TAB PO PRN ×2 (09:07→16:27)
[2020-06-18] MEDS: Insulin Glargine 9 UNITS in Pre-Filled Syringe 1 EACH SC SCH (10:05)
[2020-06-18] MEDS: Bacitracin 1 PK TOP SCH ×2 (10:05→20:15)
[2020-06-18 10:45] LABS: Hemoglobin A1c 10.9 % (4.0-6.0)
[2020-06-18] MEDS ORDERED: Empagliflozin 25 MG TAB PO SCH (10:45)
[2020-06-18] MEDS: Ketorolac Tromethamine 30 MG/ML VIAL IVP PRN (12:35)
[2020-06-18] MEDS: Morphine 4 MG/ML VIAL SLOW IVP PRN ×2 (14:22→23:16)
[2020-06-18] MEDS: Doxepin HCl 25 MG CAP PO SCH ×2 (14:24→20:16)
[2020-06-18] MEDS: Cepastat Lozenges 1 LOZ PO PRN ×2 (16:32→23:23)
[2020-06-18] MEDS: Atorvastatin Calcium 40 MG TAB PO SCH (20:15)
[2020-06-18] MEDS: Acyclovir 400 mg Tablet PO SCH (20:15)
[2020-06-18] MEDS: Insulin Glargine 18 UNITS in Pre-Filled Syringe SC SCH (20:16)
[2020-06-18] MEDS: Prazosin HCl 1 MG CAP PO SCH (20:16)
[2020-06-19] MEDS: Acetaminophen 325 MG TAB PO PRN (03:00)
[2020-06-19] MEDS: Cepastat Lozenges 1 LOZ PO PRN ×3 (03:03→20:50)
[2020-06-19 05:36] LABS: #Eosinphils 0.1 thou/uL (0.0-0.7); #Lymphocytes 2.4 thou/uL (1.20-3.40); %Basophils 0.3 % (0.0-1.0); %Eosinophils 0.5 % (0.0-10.0); %Lymphocytes 17.8 % (21.0-51.0); %Monocytes 7.7 % (0.0-10.0); %Neutrophils 73.7 % (42.0-75.0); Hemoglobin 12.7 g/dL (14.0-18.0); Mean Corpuscular HGB CONC 32.2 g/dL (32.0-36.0); Mean Corpuscular Hemoglobin 29.4 pg (27.0-31.0); Mean Corpuscular Volume 91.2 fL (78.0-98.0); Mean Platelet Volume 6.1 fL (7.4-10.4); Platelet Count 346 thou/uL (130-400); RBC Distribution Width 12.4 % (11.5-14.5); Red Blood Cell (RBC) Count 4.31 mill/uL (4.70-6.10); White Blood Cell (WBC) Count 13.6 thou/uL (4.8-10.8)
[2020-06-19 06:00] LABS: Anion Gap 14 mmol/L (10-20); BUN (Urea Nitrogen) 20 mg/dL (8.4-25.7); Calc. Creatinine Clearance 124 mL/min (70-130); Calcium 8.4 mg/dL (7.8-10.44); Carbon Dioxide 23 mmol/L (23-31); Chloride 105 mmol/L (98-107); Glucose 154 mg/dL (83-110); Potassium 3.7 mmol/L (3.5-5.1); Sodium 138 mmol/L (136-145)
[2020-06-19] MEDS: Morphine 4 MG/ML VIAL SLOW IVP PRN ×2 (07:57→12:13)
[2020-06-19] MEDS: CEFAZOLIN 2 GM in Premix Bag 1 BAG IVPB SCH ×3 (08:01→23:39)
[2020-06-19] MEDS: Empagliflozin 25 MG TAB PO SCH (08:03)
[2020-06-19] MEDS: Bacitracin 1 PK TOP SCH ×2 (08:04→20:49)
[2020-06-19] MEDS: DULoxetine 30 MG CAP PO SCH (08:05)
[2020-06-19] MEDS: Loratadine 10 MG TAB PO SCH (08:05)
[2020-06-19] MEDS: Acyclovir 400 mg Tablet PO SCH ×2 (08:05→20:49)
[2020-06-19] MEDS: Enoxaparin Sodium 40 MG/0.4 ML SYRINGE SC SCH (08:06)
[2020-06-19] MEDS: Doxepin HCl 25 MG CAP PO SCH ×3 (08:06→20:49)
[2020-06-19] MEDS: HumaLOG 300 UNITS/3 ML VIAL SC SCH ×3 (08:07→17:30)
[2020-06-19] MEDS ORDERED: methylPREDNISolone Sod Succ/PF 125 MG/2 ML VIAL IVP SCH (09:00)
[2020-06-19] MEDS: Insulin Glargine 9 UNITS in Pre-Filled Syringe 1 EACH SC SCH (09:36)
[2020-06-19] MEDS ORDERED: Morphine 4 MG/ML VIAL SLOW IVP PRN (12:16)
[2020-06-19] MEDS: HYDROcodone/Acetaminophen 5/325 mg Tablet PO PRN ×2 (15:32→20:50)
[2020-06-19] MEDS: Insulin Regular 300 UNITS/3 ML VIAL SC PRN (17:29)
[2020-06-19] MEDS: Sodium Chloride 0.9% 1,000 ML IV SCH ×2 (17:35→18:38)
[2020-06-19] MEDS: Prazosin HCl 1 MG CAP PO SCH (20:49)
[2020-06-19] MEDS: Atorvastatin Calcium 40 MG TAB PO SCH (20:49)
[2020-06-19] MEDS: Insulin Glargine 18 UNITS in Pre-Filled Syringe SC SCH (20:49)
[2020-06-20] MEDS: Cepastat Lozenges 1 LOZ PO PRN (01:14)
[2020-06-20] MEDS: Insulin Regular 300 UNITS/3 ML VIAL SC PRN ×2 (05:23→17:23)
[2020-06-20] MEDS: HYDROcodone/Acetaminophen 5/325 mg Tablet PO PRN ×3 (05:31→14:33)
[2020-06-20 05:41] LABS: #Lymphocytes 1.5 thou/uL (1.20-3.40); #Monocytes 0.4 thou/uL (0.11-0.59); #Neutrophils 8.3 thou/uL (1.40-6.50); %Basophils 0.3 % (0.0-1.0); %Eosinophils 0.3 % (0.0-10.0); %Lymphocytes 14.5 % (21.0-51.0); %Monocytes 3.6 % (0.0-10.0); %Neutrophils 81.4 % (42.0-75.0); Hemoglobin 12.8 g/dL (14.0-18.0); Mean Corpuscular HGB CONC 32.6 g/dL (32.0-36.0); Mean Corpuscular Hemoglobin 29.6 pg (27.0-31.0); Mean Corpuscular Volume 90.8 fL (78.0-98.0); Mean Platelet Volume 5.9 fL (7.4-10.4); Platelet Count 328 thou/uL (130-400); RBC Distribution Width 12.3 % (11.5-14.5); Red Blood Cell (RBC) Count 4.31 mill/uL (4.70-6.10); White Blood Cell (WBC) Count 10.2 thou/uL (4.8-10.8)
[2020-06-20 06:01] LABS: Anion Gap 12 mmol/L (10-20); BUN (Urea Nitrogen) 20 mg/dL (8.4-25.7); Calc. Creatinine Clearance 136 mL/min (70-130); Calcium 8.4 mg/dL (7.8-10.44); Carbon Dioxide 25 mmol/L (23-31); Chloride 101 mmol/L (98-107); Glucose 206 mg/dL (83-110); Potassium 3.7 mmol/L (3.5-5.1); Sodium 134 mmol/L (136-145)
[2020-06-20] MEDS: DULoxetine 30 MG CAP PO SCH (07:59)
[2020-06-20] MEDS: HumaLOG 300 UNITS/3 ML VIAL SC SCH ×2 (08:00→12:43)
[2020-06-20] MEDS: Loratadine 10 MG TAB PO SCH (08:00)
[2020-06-20] MEDS: Acyclovir 400 mg Tablet PO SCH (08:00)
[2020-06-20] MEDS: CEFAZOLIN 2 GM in Premix Bag 1 BAG IVPB SCH (08:01)
[2020-06-20] MEDS: Enoxaparin Sodium 40 MG/0.4 ML SYRINGE SC SCH (08:01)
[2020-06-20] MEDS: Doxepin HCl 25 MG CAP PO SCH ×2 (08:09→15:40)
[2020-06-20] MEDS: Methocarbamol 500 MG TAB PO PRN (08:10)
[2020-06-20] MEDS: Empagliflozin 25 MG TAB PO SCH (08:10)
[2020-06-20] MEDS: Insulin Glargine 9 UNITS in Pre-Filled Syringe 1 EACH SC SCH (09:20)
[2020-06-20] MEDS: Bacitracin 1 PK TOP SCH (09:21)
[2020-06-20] MEDS ORDERED: cefTRIAXone\\ROCEPHIN 2 GM in Sodium Chloride 0.9% 100 ML IVPB SCH (10:00)
[2020-06-20] MEDS: Sodium Chloride 0.9% 1,000 ML IV SCH (16:00)
[2020-06-20 17:56] VITALS: BP 143/66
[2020-06-20 17:59] VITALS: TEMP 98.3
[2020-06-22 14:14] LABS: Fungus Stain Final report (.)
== END 2020-06-20 18:04 | disposition home or self-care (01) | DRG 854 ==
LOC: ERS 17:42 → T4-A 23:26
PROVIDERS: ADMIT Student in an Organized Health Care Education/Training Program; ATTEND Internal Medicine
PROC: 0JB40ZZ Excision of Right Neck Subcutaneous Tissue and Fascia, Open Approach (ICD-10-PCS; principal; 2020-06-17)
PROC: 02HV33Z Insertion of Infusion Device into Superior Vena Cava, Percutaneous Approach (ICD-10-PCS; 2020-06-20)
PROC: B548ZZA Ultrasonography of Superior Vena Cava, Guidance (ICD-10-PCS; 2020-06-20)
DX: A41.01 Sepsis due to Methicillin susceptible Staphylococcus aureus (principal); E87.1 Hypo-osmolality and hyponatremia; R45.851 Suicidal ideations; L03.221 Cellulitis of neck; K21.9 Gastro-esophageal reflux disease without esophagitis; D64.9 Anemia, unspecified; E11.9 Type 2 diabetes mellitus without complications; I10 Essential (primary) hypertension; M47.812 Spondylosis without myelopathy or radiculopathy, cervical region; F41.9 Anxiety disorder, unspecified; F32.9 Major depressive disorder, single episode, unspecified; F43.10 Post-traumatic stress disorder, unspecified; Z20.822 Contact with and (suspected) exposure to COVID-19; G51.0 Bell's palsy; I80.8 Phlebitis and thrombophlebitis of other sites; R13.10 Dysphagia, unspecified; Z98.890 Other specified postprocedural states; Z79.4 Long term (current) use of insulin; Z90.49 Acquired absence of other specified parts of digestive tract; Z79.899 Other long term (current) drug therapy
CPT/HCPCS: 36415; 36416; 36569; 70491; 71046; 72125; 72156; 72157; 80048; 80053; 80202; 83036; 83605; 83735; 84439; 84443; 85025; 85027; 85652; 86140; 87040; 87070; 87077; 87102; 87116; 87149; 87186; 87205; 87206; 87635; 93306; 96365; 96367; 96372; 96375; 96376; 99283; A9579; C1751; J0360; J0690; J0692; J0696; J1100; J1650; J1815; J1885; J2001; J2270; J2405; J2543; J2704; J2765; J2920; J2930; J3010; J3370; J3490; J7030; J8540; Q0162; Q9967; S0028; U0003; U0005

== ENCOUNTER 2020-07-01 16:39 | Emergency (ER) | payer OTHER ==
[2020-07-01] MEDS ORDERED: HYDROcodone/Acetaminophen 10/325 mg Tablet ONE (18:08)
== END 2020-07-01 19:11 | disposition home or self-care (01) ==
LOC: ERS 16:39
DX: M25.511 Pain in right shoulder (principal); D64.9 Anemia, unspecified; K21.9 Gastro-esophageal reflux disease without esophagitis; E11.9 Type 2 diabetes mellitus without complications; I10 Essential (primary) hypertension; Z79.84 Long term (current) use of oral hypoglycemic drugs

== ENCOUNTER 2021-05-05 09:10 | Emergency (ER) | payer OTHER ==
[2021-05-05] MEDS ORDERED: HYDROcodone/Acetaminophen 7.5/325 mg Tablet ONE (10:24)
== END 2021-05-05 11:23 | disposition home or self-care (01) ==
LOC: ERS 09:10
DX: M54.50 Low back pain, unspecified (principal); D64.9 Anemia, unspecified; K21.9 Gastro-esophageal reflux disease without esophagitis; E11.9 Type 2 diabetes mellitus without complications; I10 Essential (primary) hypertension
CPT/HCPCS: 99283

== ENCOUNTER 2021-05-07 06:04 | Emergency (ER) | payer OTHER ==
[2021-05-07] MEDS ORDERED: Ketorolac Tromethamine 30 MG/ML VIAL ONE (06:22)
[2021-05-07] MEDS ORDERED: Morphine 4 MG/ML VIAL ONE (06:22)
== END 2021-05-07 07:13 | disposition home or self-care (01) ==
LOC: ERS 06:04
DX: M54.42 Lumbago with sciatica, left side (principal); I10 Essential (primary) hypertension; D64.9 Anemia, unspecified; K21.9 Gastro-esophageal reflux disease without esophagitis; E11.9 Type 2 diabetes mellitus without complications; Z79.4 Long term (current) use of insulin
CPT/HCPCS: 72100; 96372; 96374; J1885; J2270

== ENCOUNTER 2021-05-08 19:52 | Observation (INO) | payer OTHER ==
[2021-05-08] MEDS ORDERED: Ketorolac Tromethamine 30 MG/ML VIAL ONE (20:03)
[2021-05-08] MEDS ORDERED: Morphine 4 MG/ML VIAL ONE ×2 (20:03→22:38)
[2021-05-08 20:25] LABS: #Lymphocytes 1.8 thou/uL (1.20-3.40); #Monocytes 0.4 thou/uL (0.11-0.59); #Neutrophils 7.7 thou/uL (1.40-6.50); %Basophils 0.3 % (0.0-1.0); %Eosinophils 0.3 % (0.0-10.0); %Lymphocytes 18.2 % (21.0-51.0); %Monocytes 3.8 % (0.0-10.0); %Neutrophils 77.5 % (42.0-75.0); Hemoglobin 14.7 g/dL (14.0-18.0); Mean Corpuscular HGB CONC 33.2 g/dL (32.0-36.0); Mean Corpuscular Hemoglobin 29.3 pg (27.0-31.0); Mean Corpuscular Volume 88.3 fL (78.0-98.0); Mean Platelet Volume 6.5 fL (7.4-10.4); Platelet Count 300 thou/uL (130-400); RBC Distribution Width 12.2 % (11.5-14.5); Red Blood Cell (RBC) Count 5.03 mill/uL (4.70-6.10); White Blood Cell (WBC) Count 9.9 thou/uL (4.8-10.8)
[2021-05-08 20:46] LABS: ALT (SGPT) 14 U/L (8-55); AST (SGOT) 11 U/L (5-34); Albumin 4.7 g/dL (3.4-4.8); Alkaline Phosphatase 145 U/L (40-110); Anion Gap 18 mmol/L (10-20); BUN (Urea Nitrogen) 24 mg/dL (8.4-25.7); Bilirubin, Total 0.4 mg/dL (0.2-1.2); Calc. Creatinine Clearance 0 mL/min (70-130); Calcium 10.4 mg/dL (7.8-10.44); Carbon Dioxide 22 mmol/L (23-31); Chloride 97 mmol/L (98-107); Globulin 3.1 g/dL (2.4-3.5); Glucose 454 mg/dL (83-110); Potassium 4.5 mmol/L (3.5-5.1); Protein, Total 7.8 g/dL (5.8-8.1); Sodium 132 mmol/L (136-145)
[2021-05-08] MEDS ORDERED: Insulin Regular 300 UNITS/3 ML VIAL ONE (21:16)
[2021-05-08 21:47] LABS: Bilirubin Negative (Negative); Blood, Urine Negative (Negative); Clarity Clear (Clear); Glucose, Urine (Dipstick) Greater than 1000 mg/dL (Negative); Ketone, Urine Negative (Negative); Leukocyte Negative Leu/uL (Negative); Nitrite Negative (Negative); Protein, Urine (Dipstick) Negative (Neg-Trace); Urobilinogen Normal mg/dL (Less than 2)
[2021-05-08] MEDS ORDERED: Dextrose 50% Abboject 50 ML SYRINGE SLOW IVP PRN (21:48)
[2021-05-08] MEDS ORDERED: Dextrose 5% in Water 1,000 ML IV PRN (21:48)
[2021-05-08] MEDS ORDERED: HumaLOG 300 UNITS/3 ML VIAL SC PRN ×2 (21:48)
[2021-05-08] MEDS ORDERED: Ondansetron PF 4 MG/2 ML Vial IVP PRN (21:48)
[2021-05-08] MEDS ORDERED: HYDROcodone/Acetaminophen 5/325 mg Tablet PO PRN (21:48)
[2021-05-08] MEDS ORDERED: Senokot S 8.6-50 MG TAB PO PRN (21:48)
[2021-05-08] MEDS ORDERED: Acetaminophen 325 MG TAB PO PRN (21:48)
[2021-05-08] MEDS ORDERED: Tamsulosin HCl 0.4 MG CAP PO SCH (22:00)
[2021-05-08] MEDS ORDERED: Sodium Chloride 0.9% 1,000 ML IV SCH (22:00)
[2021-05-08] MEDS ORDERED: Lantus 1000 UNITS/10 ML VIAL SC SCH (22:00)
[2021-05-08 23:25] LABS: Lactic Acid 2.7 mmol/L (0.5-2.2)
[2021-05-09] MEDS ORDERED: Morphine 4 MG/ML VIAL ONE ×3 (00:41→09:27)
[2021-05-09] MEDS: Morphine 4 MG/ML VIAL SLOW IVP PRN ×2 (01:00→09:30)
[2021-05-09] MEDS ORDERED: Morphine 4 MG/ML VIAL SLOW IVP SCH (06:00)
[2021-05-09 07:46] LABS: SARS-CoV-2 NAA Rapid Test Not Detected (NotDetected)
[2021-05-09] MEDS ORDERED: Famotidine 20 MG TAB ONE (08:50)
[2021-05-09] MEDS ORDERED: Heparin 5,000 UNITS/ML VIAL SC SCH (09:00)
[2021-05-09] MEDS ORDERED: Famotidine 20 MG TAB PO SCH (09:00)
[2021-05-09] MEDS ORDERED: Iothalamate Meglumine 60% 50 ML VIAL FS ONE (10:14)
[2021-05-09] MEDS ORDERED: Levofloxacin 500 mg/D5W 100 ml Premix Bag ONE (11:11)
[2021-05-09] MEDS ORDERED: Fentanyl 100 MCG/2 ML VIAL ONE ×3 (11:11→11:31)
[2021-05-09] MEDS ORDERED: Dexamethasone 20 MG/5 ML VIAL ONE (11:33)
[2021-05-09] MEDS ORDERED: Ondansetron PF 4 MG/2 ML Vial ONE (11:33)
[2021-05-09] MEDS ORDERED: PROPOFOL 200 MG/20 ML VIAL ONE (11:33)
[2021-05-09] MEDS ORDERED: Lidocaine 1% PF 5 ML VIAL ONE (11:33)
[2021-05-09] MEDS ORDERED: Vancomycin 1 GM in Premix Bag 1 BAG IVPB SCH (13:00)
[2021-05-09] MEDS ORDERED: hydrALAZINE 20 MG/ML VIAL ONE (14:24)
[2021-05-09] MEDS ORDERED: hydrALAZINE 20 MG/ML VIAL SLOW IVP PRN (14:29)
[2021-05-09] MEDS ORDERED: HYDROcodone/Acetaminophen 5/325 mg Tablet ONE (14:45)
[2021-05-09] MEDS ORDERED: HumaLOG 300 UNITS/3 ML VIAL ONE (15:02)
[2021-05-09] MEDS ORDERED: Tamsulosin HCl 0.4 MG CAP PO SCH (21:00)
[2021-05-09] MEDS ORDERED: Lantus 1000 UNITS/10 ML VIAL SC SCH (21:00)
== END 2021-05-09 17:34 | disposition home or self-care (01) ==
LOC: ERS 19:52 → ERHOLD 21:38 → SURG A 05-09 14:59
PROVIDERS: ADMIT Internal Medicine; ATTEND Nurse Practitioner Family
PROC: 0T778DZ Dilation of Left Ureter with Intraluminal Device, Via Natural or Artificial Opening Endoscopic (ICD-10-PCS; principal; 2021-05-09)
DX: N20.1 Calculus of ureter (principal); N13.4 Hydroureter; I10 Essential (primary) hypertension; E11.65 Type 2 diabetes mellitus with hyperglycemia; E11.10 Type 2 diabetes mellitus with ketoacidosis without coma; E87.1 Hypo-osmolality and hyponatremia; N40.0 Benign prostatic hyperplasia without lower urinary tract symptoms; Z79.4 Long term (current) use of insulin; Z79.84 Long term (current) use of oral hypoglycemic drugs; Z79.899 Other long term (current) drug therapy; Z20.822 Contact with and (suspected) exposure to COVID-19
CPT/HCPCS: 36415; 36416; 74176; 74420; 80053; 81003; 83605; 84484; 85025; 93005; 96374; 96375; 96376; C2617; G0378; J0360; J1100; J1644; J1815; J1885; J1956; J2270; J2405; J2704; J3010; J7050; Q9961-U8; U0002

== ENCOUNTER 2021-05-10 21:03 | Emergency (ER) | payer OTHER ==
[2021-05-11] MEDS ORDERED: Xylocaine 1% w/ Epi 1:100K 10 ML VIAL ONE (01:13)
[2021-05-11 01:37] LABS: Bacteria/HPF None Seen HPF (None Seen); Bilirubin Negative (Negative); Blood, Urine 3+ (Negative); Clarity Turbid (Clear); Glucose, Urine (Dipstick) Greater than 1000 mg/dL (Negative); Ketone, Urine Negative (Negative); Leukocyte 75 Leu/uL (Negative); Nitrite Negative (Negative); Protein, Urine (Dipstick) 30 mg/dL (Neg-Trace); RBC/HPF Greater than 50 HPF (0-3); Specific Gravity, Urine 1.032 (1.002-1.036); Squamous Epithelial None Seen HPF (0-3); Urobilinogen Normal mg/dL (Less than 2); WBC/HPF 21-50 HPF (0-3); pH, Urine 5.5 (5.0-9.0)
[2021-05-11] MEDS ORDERED: Orphenadrine Citrate 60 MG/2 ML VIAL IM SCH (02:45)
== END 2021-05-11 03:23 | disposition home or self-care (01) ==
LOC: ERS 21:03
DX: N39.0 Urinary tract infection, site not specified (principal); M54.50 Low back pain, unspecified; I10 Essential (primary) hypertension; E11.9 Type 2 diabetes mellitus without complications; D64.9 Anemia, unspecified; K21.9 Gastro-esophageal reflux disease without esophagitis; Z79.84 Long term (current) use of oral hypoglycemic drugs; Z79.82 Long term (current) use of aspirin
CPT/HCPCS: 81003; 81015; 87086; 96372; 99283; J2360

== ENCOUNTER 2021-05-29 13:11 | Outpatient (CLI) | payer OTHER | END 2021-05-29 13:12 | disposition home or self-care (01) | LOC: CT 13:11 | PROVIDERS: ATTEND Urology | DX: N20.1 Calculus of ureter (principal); N20.0 Calculus of kidney | CPT/HCPCS: 74176 ==

== ENCOUNTER 2021-08-04 02:41 | Observation (INO) | payer OTHER ==
[2021-08-04] MEDS ORDERED: Acetaminophen 500 MG TAB ONE (03:38)
[2021-08-04 03:49] LABS: #Monocytes 0.2 thou/uL (0.11-0.59); #Neutrophils 6.6 thou/uL (1.40-6.50); %Basophils 0.2 % (0.0-1.0); %Eosinophils 0.2 % (0.0-10.0); %Lymphocytes 12.7 % (21.0-51.0); %Monocytes 3.1 % (0.0-10.0); %Neutrophils 83.9 % (42.0-75.0); Hemoglobin 13.8 g/dL (14.0-18.0); Mean Corpuscular HGB CONC 34.6 g/dL (32.0-36.0); Mean Corpuscular Volume 89.5 fL (78.0-98.0); Mean Platelet Volume 6.6 fL (7.4-10.4); Platelet Count 290 thou/uL (130-400); RBC Distribution Width 11.7 % (11.5-14.5); Red Blood Cell (RBC) Count 4.45 mill/uL (4.70-6.10); White Blood Cell (WBC) Count 7.9 thou/uL (4.8-10.8)
[2021-08-04 04:16] LABS: ALT (SGPT) 12 U/L (8-55); AST (SGOT) 10 U/L (5-34); Albumin 4.1 g/dL (3.4-4.8); Alkaline Phosphatase 142 U/L (40-110); Anion Gap 16 mmol/L (10-20); BUN (Urea Nitrogen) 21 mg/dL (8.4-25.7); Bilirubin, Total 0.5 mg/dL (0.2-1.2); Calc. Creatinine Clearance 0 mL/min (70-130); Calcium 9.9 mg/dL (7.8-10.44); Carbon Dioxide 21 mmol/L (23-31); Chloride 100 mmol/L (98-107); Globulin 2.9 g/dL (2.4-3.5); Glucose 519 mg/dL (83-110); Potassium 4.3 mmol/L (3.5-5.1); Sodium 133 mmol/L (136-145)
[2021-08-04] MEDS ORDERED: Aspirin 325 MG TAB ONE (04:34)
[2021-08-04] MEDS ORDERED: Nitroglycerin 0.4 MG TAB (25 Tab Bottle) SL PRN (05:01)
[2021-08-04] MEDS ORDERED: Ondansetron PF 4 MG/2 ML Vial IVP PRN (05:01)
[2021-08-04] MEDS ORDERED: Acetaminophen 325 MG TAB PO PRN (05:01)
[2021-08-04] MEDS ORDERED: Dextrose 50% Abboject 50 ML SYRINGE SLOW IVP PRN (05:03)
[2021-08-04] MEDS ORDERED: Dextrose 5% in Water 1,000 ML IV PRN (05:03)
[2021-08-04] MEDS ORDERED: HumaLOG 300 UNITS/3 ML VIAL SC PRN ×2 (05:03)
[2021-08-04] MEDS ORDERED: Morphine 4 MG/ML VIAL ONE (05:20)
[2021-08-04 05:27] LABS: Hemoglobin A1c 11.1 % (4.0-6.0)
[2021-08-04 05:33] LABS: Cardiac Risk 4.3 (Less than 4.5)
[2021-08-04 06:49] VITALS: BMI 25.4
[2021-08-04 07:11] LABS: Troponin I Less than 0.010 ng/mL (< 0.028)
[2021-08-04] MEDS ORDERED: Enoxaparin Sodium 40 MG/0.4 ML SYRINGE SC SCH (09:00)
[2021-08-04] MEDS ORDERED: Insulin Glargine 30 UNITS/0.3 ML VIAL SC SCH (09:00)
[2021-08-04] MEDS ORDERED: Doxepin HCl 10 MG CAP PO SCH (09:00)
[2021-08-04] MEDS ORDERED: Non-Formulary Item 1 EACH (Insulin Detemir [Levemir] 100 UNIT/ML Vial) SQ SCH (09:19)
[2021-08-04] MEDS ORDERED: ADENOSINE 60 MG/20 ML VIAL ONE (09:42)
[2021-08-04 09:44] LABS: Troponin I Less than 0.010 ng/mL (< 0.028)
[2021-08-04 12:10] LABS: SARS-CoV-2 PCR by NAA Not Detected (NotDetected)
[2021-08-04 13:51] VITALS: BP 143/71; TEMP 98.7
[2021-08-04] MEDS ORDERED: Gabapentin 100 MG CAP PO SCH (15:00)
[2021-08-04] MEDS ORDERED: Non-Formulary Item 1 EACH (Quetiapine Fumarate [Seroquel] 400 MG Tablet) PO SCH (21:00)
[2021-08-04] MEDS ORDERED: Atorvastatin Calcium 40 MG TAB PO SCH (21:00)
[2021-08-04] MEDS ORDERED: Non-Formulary Item 1 EACH (Atorvastatin Calcium [Atorvastatin Calcium] 80 MG Tablet) PO SCH (21:00)
[2021-08-04] MEDS ORDERED: Tamsulosin HCl 0.4 MG CAP PO SCH (21:00)
[2021-08-04] MEDS ORDERED: Doxepin HCl 25 MG CAP PO SCH (21:00)
== END 2021-08-04 15:19 | disposition left against medical advice (07) ==
LOC: ERS 02:41 → 2SW 04:55
PROVIDERS: ADMIT Internal Medicine; ATTEND Internal Medicine
DX: R07.9 Chest pain, unspecified (principal); E11.65 Type 2 diabetes mellitus with hyperglycemia; I11.0 Hypertensive heart disease with heart failure; I50.32 Chronic diastolic (congestive) heart failure; G89.29 Other chronic pain; M54.40 Lumbago with sciatica, unspecified side; M25.511 Pain in right shoulder; E78.5 Hyperlipidemia, unspecified; D64.9 Anemia, unspecified; I70.0 Atherosclerosis of aorta; Z53.29 Procedure and treatment not carried out because of patient's decision for other reasons; Z79.1 Long term (current) use of non-steroidal anti-inflammatories (NSAID); Z79.4 Long term (current) use of insulin; Z79.84 Long term (current) use of oral hypoglycemic drugs; Z79.899 Other long term (current) drug therapy; Z20.822 Contact with and (suspected) exposure to COVID-19
CPT/HCPCS: 36415; 36416; 71045; 78452; 80053; 80061; 83036; 84484; 85025; 93005; 93017; 94760; 96372; 96374; A9500; G0378; J0153; J1650; J1815; J2270; U0003; U0005

== ENCOUNTER 2021-11-25 17:47 | Emergency (ER) | payer OTHER | END 2021-11-25 19:53 | disposition home or self-care (01) | LOC: ERS 17:47 | DX: U07.1 COVID-19 (principal); J06.9 Acute upper respiratory infection, unspecified; D64.9 Anemia, unspecified; K21.9 Gastro-esophageal reflux disease without esophagitis; E11.9 Type 2 diabetes mellitus without complications; I10 Essential (primary) hypertension; Z79.4 Long term (current) use of insulin; Z79.899 Other long term (current) drug therapy | CPT/HCPCS: 71045; U0003; U0005 ==

== ENCOUNTER 2022-04-15 22:22 | Emergency (ER) | payer OTHER ==
[2022-04-15] MEDS ORDERED: Morphine 4 MG/ML VIAL ONE (22:43)
[2022-04-15 23:03] LABS: #Eosinphils 0.3 thou/uL (0.0-0.7); #Lymphocytes 2.5 thou/uL (1.20-3.40); #Monocytes 0.5 thou/uL (0.11-0.59); #Neutrophils 3.7 thou/uL (1.40-6.50); %Basophils 0.4 % (0.0-1.0); %Eosinophils 3.6 % (0.0-10.0); %Lymphocytes 35.1 % (21.0-51.0); %Monocytes 7.6 % (0.0-10.0); %Neutrophils 53.2 % (42.0-75.0); Hemoglobin 13.1 g/dL (14.0-18.0); Mean Corpuscular HGB CONC 35.8 g/dL (32.0-36.0); Mean Corpuscular Hemoglobin 32.4 pg (27.0-31.0); Mean Corpuscular Volume 90.6 fl (78.0-98.0); Mean Platelet Volume 7.3 fL (7.4-10.4); Platelet Count 236 10x3/uL (130-400); RBC Distribution Width 12.1 % (11.5-14.5); Red Blood Cell (RBC) Count 4.05 mill/uL (4.70-6.10)
[2022-04-15 23:17] LABS: ALT (SGPT) 10 U/L (8-55); AST (SGOT) 15 U/L (5-34); Alkaline Phosphatase 95 U/L (40-110); Anion Gap 13 mmol/L (10-20); BUN (Urea Nitrogen) 17 mg/dL (8.4-25.7); Bilirubin, Total 0.3 mg/dL (0.2-1.2); Calc. Creatinine Clearance 0 mL/min (70-130); Calcium 9.5 mg/dL (7.8-10.44); Carbon Dioxide 24 mmol/L (23-31); Chloride 105 mmol/L (98-107); Estimated GFR 94; Glucose 152 mg/dL (83-110); Potassium 4.1 mmol/L (3.5-5.1); Sodium 138 mmol/L (136-145)
== END 2022-04-15 23:51 | disposition home or self-care (01) ==
LOC: ERS 22:22
DX: B02.9 Zoster without complications (principal); K21.9 Gastro-esophageal reflux disease without esophagitis; E11.9 Type 2 diabetes mellitus without complications; I10 Essential (primary) hypertension; Z79.82 Long term (current) use of aspirin; Z79.899 Other long term (current) drug therapy; Z79.84 Long term (current) use of oral hypoglycemic drugs; Z79.4 Long term (current) use of insulin
CPT/HCPCS: 71045; 80053; 84484; 85025; 93005; 96374; J2270